=== PATIENT | male | born 1995 | race Caucasian/White ===

== ENCOUNTER 2021-10-19 03:00 | Inpatient (IN) ==
[2021-10-19 03:41] LABS: Basophils # (auto) 0.07 K/uL (0-0.2); Basophils % (auto) 0.8 %; Eosinophils # (auto) 0.12 K/uL (0-0.5); Eosinophils % (auto) 1.3 %; Hematocrit (blood only) 38.8 % (42-52); Hemoglobin 13.9 g/dL (14.0-18.0); Immature Granulocytes # (auto) 0.02 K/uL (0.00-0.02); Immature Granulocytes % (auto) 0.2 %; Lymphocytes # (auto) 1.83 K/uL (1.2-3.4); Lymphocytes % (auto) 20.6 %; Mean Corpuscular Hgb Conc 35.8 g/dL (32-36); Mean Corpuscular Volume 83.8 fL (80-100); Mean Platelet Volume 10.2 fL (7.4-10.4); Monocytes # (auto) 1.16 K/uL (0.11-0.59); Neutrophils # (auto) 5.69 K/uL (1.4-6.5); Neutrophils % (auto) 64.1 %; Platelet Count 207 K/uL (130-400); RDW Coefficient of Variation 12.2 % (11.5-14.5); RDW Standard Deviation 37.2 fL (36.4-46.3); Red Blood Count 4.63 M/uL (4.7-6.1); White Blood Count 8.89 K/uL (4.8-10.8)
[2021-10-19 03:59] LABS: Est GFR (African American) 140.7 ml/min; Potassium 3.5 mmol/L (3.5-5.1)
[2021-10-19 04:00] LABS: Albumin Globulin Ratio 1.5 (0.9-2); Albumin Level 4.5 gm/dl (3.4-5.0); BUN Creatinine Ratio 13.3 (10-20); Bilirubin,Total 0.4 mg/dl (0.2-1.0); Calcium 9.2 mg/dl (8.5-10.1); Creatinine Clr Calc Pharmacy 137.7 ml/min; Est GFR (Non-African American) 121.4 ml/min; Total Protein 7.5 gm/dl (6.0-8.3)
--- NOTE | 2021-10-19 04:07 | Emergency Department Note ---
Impression & Plan Suicidal ideations Hand Off ED Provider Note HPI: The patient is a 26-year-old transgender male to female patient who presents the emergency department with a chief complaint of suicidal thoughts. Patient had a walk-in earlier tonight with crisis, stated that she was having thoughts of wanting to harm herself, states that she actually did attempt to harm herself by cutting her left forearm earlier this evening with a dull knife. She has some superficial abrasions to the left forearm. Patient states that she has been having financial trouble, had a recent break-up with her partner which has been making her feel more anxious and stressed and depressed. On arrival here to the ED the patient is hemodynamically stable, she is alert and oriented and cooperative, she is otherwise in no acute distress on my initial evaluation. ROS: -Psychiatric: Suicidal thoughts, depression *10 point review systems was conducted and is otherwise negative unless stated above *Outpatient medications and allergy history reviewed PE: General: Alert, NAD HEENT: Normocephalic, atraumatic Eyes: Extraocular eye movement is intact, no scleral erythema Pulmonary: Clear to auscultation bilaterally, no wheezing Cardio: Regular rate and rhythm GI: Abdomen is soft, nontender : No suprapubic tenderness MSK: No evidence of trauma or malformation of the extremities, no edema Skin: No evidence of rash, superficial abrasions to left forearm without any evidence of active bleeding Neuro: Alert, no focal deficits Psychiatric: Cooperative Medical Decision Making: Patient presented to the emergency department with anxiety and depression, states that she has been having suicidal thoughts recently, does have superficial abrasions to the left forearm consistent with suicide attempt. Patient is currently under 201 but 302 was petitioned if needed. She is medically cleared for psychiatric/case management assessment. Patient was assessed and determined appropriate for 201 admission. She is currently under a bed search, patient was signed out to my colleague at change of shift at 0630, Dr. Neumann, for further care and final disposition with bed search ongoing. Diagnosis: 1. Suicide attempt 2. Anxiety/depression Disposition: Bed search Sukhi Gonzales DO Emergency Medicine Past Med/Surg History Social History Smoking Status: Never smoker Preferred Language: Korean Feels Safe at Home: No Allergies Allergies Allergy/AdvReac Type Severity Reaction Status Date / Time Sulfa (Sulfonamide Allergy Rash Verified 10/19/21 03:09 Antibiotics) Home Meds Home Medications Medication Instructions Recorded Confirmed estradiol 2 mg tablet 4 mg PO BID 10/19/21 10/19/21 progesterone micronized 100 mg 100 mg PO DAILY 10/19/21 10/19/21 capsule spironolactone 100 mg tablet 100 mg PO BID 10/19/21 10/19/21 Results & Data (ED) Vital Signs Vital Signs - 24 hr 10/19/21 03:03 Temperature 37.0 C Temperature Source Oral Pulse Rate 74 Respiratory Rate 20 Respiratory Effort / Characteristics Non-Labored Respiratory Depth Normal Respiratory Pattern Regular Blood Pressure 154/91 H Blood Pressure Mean 112 Blood Pressure Position Sitting Pulse Oximetry 97 Oxygen Delivery Method Room Air Sepsis Recent Fever Within 48 Hours No Sepsis New/Unexplained Change in Mental Status N/A Sepsis Action Taken by Nursing No Action Required Laboratory Data Result diagrams: 10/19/21 03:26 10/19/21 03:26 Lab Results 10/19/21 10/19/21 10/19/21 Range/Units 03:23 03:23 03:26 WBC 8.89 (4.8-10.8) K/uL RBC 4.63 L (4.7-6.1) M/uL Hgb 13.9 L (14.0-18.0) g/dL Hct 38.8 L (42-52) % MCV 83.8 (80-100) fL MCH 30.0 (25-34) pg MCHC 35.8 (32-36) g/dL RDW Std Deviation 37.2 (36.4-46.3) fL RDW Coeff of [place] 12.2 (11.5-14.5) % Plt Count 207 (130-400) K/uL MPV 10.2 (7.4-10.4) fL Immature Gran % (Auto) 0.2 % Neut % (Auto) 64.1 % Lymph % (Auto) 20.6 % [place] % (Auto) 13.0 % Eos % (Auto) 1.3 % Baso % (Auto) 0.8 % Neut # (Auto) 5.69 (1.4-6.5) K/uL Lymph # (Auto) 1.83 (1.2-3.4) K/uL [place] # (Auto) 1.16 H (0.11-0.59) K/uL Eos # (Auto) 0.12 (0-0.5) K/uL Baso # (Auto) 0.07 (0-0.2) K/uL Immature Gran # (Auto) 0.02 (0.00-0.02) K/uL Sodium (136-145) mmol/L Potassium (3.5-5.1) mmol/L Chloride (98-107) mmol/L Carbon Dioxide (21-32) mmol/L Anion Gap (3-11) BUN (6-23) mg/dl Creatinine (0.6-1.4) mg/dl Est Cr Clr Drug Dosing ml/min Est GFR ( Amer) ml/min Est GFR (Non-Af Amer) ml/min BUN/Creatinine Ratio (10-20) Glucose (70-99(Fasting)) mg/dl Calcium (8.5-10.1) mg/dl Total Bilirubin (0.2-1.0) mg/dl AST (13-39) U/L ALT (7-52) U/L Alkaline Phosphatase (34-104) U/L Total Protein (6.0-8.3) gm/dl Albumin (3.4-5.0) gm/dl Globulin (2.5-4.0) gm/dl Albumin/Globulin Ratio (0.9-2) TSH (0.300-4.500) uIu/ml Urine Color Yellow Urine Appearance Clear (Clear) Urine pH 5.0 (4.5-7.5) Ur Specific [place] 1.019 (1.000-1.030) Urine Protein Negative (Negative) Urine Glucose (UA) Negative (Negative) Urine Ketones 1+ H (Negative) Urine Blood Negative (Negative) Urine Nitrite Negative (Negative) Urine Bilirubin Negative (Negative) Urine Urobilinogen Negative (Negative) Ur Leukocyte Esterase Negative (Negative) Salicylates (3.0-30) mg/dl Urine Opiates Screen Neg (Neg) Ur Methadone, Qual Neg (Neg) Acetaminophen (10-30) ug/ml Urine Barbiturates Neg (Neg) Ur Phencyclidine (PCP) Neg (Neg) U Amphetamin/Meth Scrn Neg (Neg) MDMA (Ecstasy) Screen Neg (Neg) U Benzodiazepines Scrn Neg (Neg) Ur Cocaine Metabolite Neg (Neg) U Marijuana (THC) Screen Pos H (Neg) Ethyl Alcohol mg/dL (<10.0) mg/dl 04/28/22 04/28/22 04/28/22 Range/Units 03:26 03:26 03:26 WBC (4.8-10.8) K/uL RBC (4.7-6.1) M/uL Hgb (14.0-18.0) g/dL Hct (42-52) % MCV (80-100) fL MCH (25-34) pg MCHC (32-36) g/dL RDW Std Deviation (36.4-46.3) fL RDW Coeff of [place] (11.5-14.5) % Plt Count (130-400) K/uL MPV (7.4-10.4) fL Immature Gran % (Auto) % Neut % (Auto) % Lymph % (Auto) % [place] % (Auto) % Eos % (Auto) % Baso % (Auto) % Neut # (Auto) (1.4-6.5) K/uL Lymph # (Auto) (1.2-3.4) K/uL [place] # (Auto) (0.11-0.59) K/uL Eos # (Auto) (0-0.5) K/uL Baso # (Auto) (0-0.2) K/uL Immature Gran # (Auto) (0.00-0.02) K/uL Sodium 137 (136-145) mmol/L Potassium 3.5 (3.5-5.1) mmol/L Chloride 103 (98-107) mmol/L Carbon Dioxide 26 (21-32) mmol/L Anion Gap 8 (3-11) BUN 11 (6-23) mg/dl Creatinine 0.83 (0.6-1.4) mg/dl Est Cr Clr Drug Dosing 137.7 ml/min Est GFR ( Amer) 140.7 ml/min Est GFR (Non-Af Amer) 121.4 ml/min BUN/Creatinine Ratio 13.3 (10-20) Glucose 95 (70-99(Fasting)) mg/dl Calcium 9.2 (8.5-10.1) mg/dl Total Bilirubin 0.4 (0.2-1.0) mg/dl AST 17 (13-39) U/L ALT 10 (7-52) U/L Alkaline Phosphatase 52 (34-104) U/L Total Protein 7.5 (6.0-8.3) gm/dl Albumin 4.5 (3.4-5.0) gm/dl Globulin 3.0 (2.5-4.0) gm/dl Albumin/Globulin Ratio 1.5 (0.9-2) TSH 3.044 (0.300-4.500) uIu/ml Urine Color Urine Appearance (Clear) Urine pH (4.5-7.5) Ur Specific [place] (1.000-1.030) Urine Protein (Negative) Urine Glucose (UA) (Negative) Urine Ketones (Negative) Urine Blood (Negative) Urine Nitrite (Negative) Urine Bilirubin (Negative) Urine Urobilinogen (Negative) Ur Leukocyte Esterase (Negative) Salicylates < 3.0 L (3.0-30) mg/dl Urine Opiates Screen (Neg) Ur Methadone, Qual (Neg) Acetaminophen < 3 L (10-30) ug/ml Urine Barbiturates (Neg) Ur Phencyclidine (PCP) (Neg) U Amphetamin/Meth Scrn (Neg) MDMA (Ecstasy) Screen (Neg) U Benzodiazepines Scrn (Neg) Ur Cocaine Metabolite (Neg) U Marijuana (THC) Screen (Neg) Ethyl Alcohol mg/dL (<10.0) mg/dl 10/19/21 Range/Units 03:26 WBC (4.8-10.8) K/uL RBC (4.7-6.1) M/uL Hgb (14.0-18.0) g/dL Hct (42-52) % MCV (80-100) fL MCH (25-34) pg MCHC (32-36) g/dL RDW Std Deviation (36.4-46.3) fL RDW Coeff of [place] (11.5-14.5) % Plt Count (130-400) K/uL MPV (7.4-10.4) fL Immature Gran % (Auto) % Neut % (Auto) % Lymph % (Auto) % [place] % (Auto) % Eos % (Auto) % Baso % (Auto) % Neut # (Auto) (1.4-6.5) K/uL Lymph # (Auto) (1.2-3.4) K/uL [place] # (Auto) (0.11-0.59) K/uL Eos # (Auto) (0-0.5) K/uL Baso # (Auto) (0-0.2) K/uL Immature Gran # (Auto) (0.00-0.02) K/uL Sodium (136-145) mmol/L Potassium (3.5-5.1) mmol/L Chloride (98-107) mmol/L Carbon Dioxide (21-32) mmol/L Anion Gap (3-11) BUN (6-23) mg/dl Creatinine (0.6-1.4) mg/dl Est Cr Clr Drug Dosing ml/min Est GFR ( Amer) ml/min Est GFR (Non-Af Amer) ml/min BUN/Creatinine Ratio (10-20) Glucose (70-99(Fasting)) mg/dl Calcium (8.5-10.1) mg/dl Total Bilirubin (0.2-1.0) mg/dl AST (13-39) U/L ALT (7-52) U/L Alkaline Phosphatase (34-104) U/L Total Protein (6.0-8.3) gm/dl Albumin (3.4-5.0) gm/dl Globulin (2.5-4.0) gm/dl Albumin/Globulin Ratio (0.9-2) TSH (0.300-4.500) uIu/ml Urine Color Urine Appearance (Clear) Urine pH (4.5-7.5) Ur Specific [place] (1.000-1.030) Urine Protein (Negative) Urine Glucose (UA) (Negative) Urine Ketones (Negative) Urine Blood (Negative) Urine Nitrite (Negative) Urine Bilirubin (Negative) Urine Urobilinogen (Negative) Ur Leukocyte Esterase (Negative) Salicylates (3.0-30) mg/dl Urine Opiates Screen (Neg) Ur Methadone, Qual (Neg) Acetaminophen (10-30) ug/ml Urine Barbiturates (Neg) Ur Phencyclidine (PCP) (Neg) U Amphetamin/Meth Scrn (Neg) MDMA (Ecstasy) Screen (Neg) U Benzodiazepines Scrn (Neg) Ur Cocaine Metabolite (Neg) U Marijuana (THC) Screen (Neg) Ethyl Alcohol mg/dL < 10.0 (<10.0) mg/dl Discharge Plan Visit Data Chief Complaint: Mental Health Evaluation Stated Complaint: DEPRESSION ED Provider: Sukhi Gonzales Discharge Problem: Suicidal ideations Forms Stand Alone Forms: [facility], Suicide Prevention Resources Prescriptions Prescriptions: No Action spironolactone 100 mg tablet 100 mg PO BID RF: 0 estradiol 2 mg tablet 4 mg PO BID RF: 0 progesterone micronized 100 mg capsule 100 mg PO DAILY RF: 0 Referrals Referrals: PCP,NO [Physician] -
[2021-10-19 04:12] LABS: Acetaminophen < 3 ug/ml (10-30); Salicylate < 3.0 mg/dl (3.0-30)
[2021-10-19 04:22] LABS: Appearance Urine Clear (Clear); Bilirubin Urine Negative (Negative); Blood Urine Negative (Negative); Color Urine Yellow; Glucose Urine UA Negative (Negative); Ketones Urine 1+ (Negative); Leukocyte Esterase Urine Negative (Negative); Nitrite Urine Negative (Negative); Protein Urine Negative (Negative); Specific Gravity Urine 1.019 (1.000-1.030); Urobilinogen Urine Negative (Negative)
[2021-10-19 04:50] LABS: Amphetamines+Metham, Urine Neg (Neg); Barbiturates, Urine Neg (Neg); Benzodiazepine, Urine Neg (Neg); Cocaine, Urine Neg (Neg); MDMA (Ecstacy), Urine Neg (Neg); Methadone, Urine Neg (Neg); Opiate, Urine Neg (Neg); Phencyclidine, Urine Neg (Neg)
--- NOTE | 2021-10-19 07:53 | Emergency Department Note ---
ED Visit Note Date and Time: at 7:30 AM Interval History: Sign out received from Dr. Otero who reviewed details of the encounter. Patient was pending mental health placement. Summary: Patient was re-evaluated at 7:52 AM and vital signs reviewed. Patient is transgender male to female transition. Suicidal with plan. Attempted cutting self with knife with minimal injury. Stress factors include recent break-up with significant other. Currently 201 with a 302 backup. Bed search underway. Disposition: Patient initially evaluated by Dr. Otero on 10/19/2021 at 4AM. Total Time: Pending .
--- NOTE | 2021-10-19 14:01 | History & Physical Report ---
Date of Service October 19, 2021 History of Present Illness Chief Complaint: suicidal ideation. Primary Care Provider: Carmen Abreu MD Azucena is a 26-year-old transgender male to female patient (pronouns she/her/hers) who presents the emergency department with a chief complaint of suicidal thoughts. Patient had a walk-in earlier tonight with crisis, stated that she was having thoughts of wanting to harm herself, states that she actually did attempt to harm herself by cutting her left forearm earlier this evening with a dull knife. She has some superficial abrasions to the left forearm. Patient states that she has been having financial trouble, family trouble, and last night she ended he relationship with her partner which has been making her feel more anxious and depressed. During my visit this afternoon, Azucena is calm, polite, and conversational, although eye contact is minimal. 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 She also ended her relationship last night, and although it was her decision, she still feels pain over this and is feeling lonely. Additionally, she has lost the support of her family several years ago after coming out as transgender. She has nieces and nephews that she hasn't seen for several years, noting the last time she had seen them was the end of September 3 years ago this month, with this anniversary coming up she has bee thinking about them more and it saddens her. All of this lead her to feeling as though she did not want to be here anymore last night. She used a kitchen knife to cut her wrists, then called crisis center, who brought her to the ED for evaluation. Today, she is feeling much better, only mildly anxious about how long she will be stuck here. She has not cut herself for 2 years prior to last night's event. She is upset with herself for digressing, but says 99% of the time she feels fine and does not wish to harm herself, last night was a brief moment of weakness. Feels depressed at baseline and has fleeting thoughts of harming herself, but does not act on them, and states her coping mechanisms includes listening to her favorite bands and focusing on healing. On a scale of 0-10, 0 meaning she would absolutely not act on a thought to harm herself, and 10 being she would immediately act on the thought or urge, she rates herself a 2. She states she has thought of a plan to kill herself previously, although she does not have access to it. She would buy sodium nitrate online and take it as she heard you may get a headache from this but otherwise drift off to sleep and don't wake up. She denies homicidal thoughts, auditory/visual/tactile hallucinations. She is COVID + today, no previous positive tests as outpatient this week. Reports she may have had chills Saturday night, otherwise asymptomatic. Vacci nated, but without her booster. Allergies Allergy/AdvReac Type Severity Reaction Status Date / Time Sulfa (Sulfonamide Allergy Rash Verified 10/19/21 03:09 Antibiotics) Home Medications Medication Instructions Recorded Confirmed Type estradiol 2 mg tablet 4 mg PO BID 10/19/21 10/19/21 History progesterone micronized 100 mg 100 mg PO DAILY 10/19/21 10/19/21 History capsule spironolactone 100 mg tablet 100 mg PO BID 10/19/21 10/19/21 History Past Med/Surg History Social History Smoking Status: Never smoker Preferred Language: Vietnamese Feels Safe at Home: No Review of Systems Review of Systems: Constitutional: Chills Saturday, otherwise no current fever/chills, weakness, fatigue, myalgias, anorexia, night sweats Eyes: No diplopia, no worsening or blurred vision ENT: normal hearing, no trouble swallowing Respiratory: No cough, sputum, dyspnea at rest or on exertion Cardiovascular: No chest pain, tightness or palpitations Abdomen: No pain, nausea, vomiting, diarrhea or constipation : Denies dysuria, hematuria, increased urgency/frequency, urinary retention Musculoskeletal: No joint pain, calf pain, swelling Neurologic: No weakness, numbness/tingling, or balance problems Psychiatric: anxiety and depression Skin: No rash or itch Physical Exam Physical Exam: General: awake, alert, no apparent distress Head: Normocephalic, atraumatic ENT: PERRL, EOMI, no pharyngeal exudate, mucous membranes moist Chest: Clear to auscultation, on room air, no adventitious breath sounds Cardiac: Regular rate and rhythm, no murmur, no JVD, normal peripheral pulses, good capillary refill Abdominal: NABS x 4 quadrants, soft, nontender to palpation, no rebound, guarding or tenderness Extremities: Normal inspection, no peripheral edema or erythema, calfs nontender to palpation Psych: Normal mood and affect Neuro: AAO x 3, strength intact bilaterally and rated 5/5, no motor deficits, speech is clear, no peripheral sensory deficits Skin: no rash or erythema Results & Data Results & Data ([facility]) Vital Signs (Past 12 Hours) Vital Signs Temp Pulse Pulse Resp BP BP Pulse Ox 10/19/21 07:38 69 16 140/88 97 10/19/21 03:03 37.0 C 74 20 154/91 H 97 Laboratory Results Abnormal lab results 10/19/21 10/19/21 10/19/21 Range/Units 03:23 03:23 03:26 RBC 4.63 L (4.7-6.1) M/uL Hgb 13.9 L (14.0-18.0) g/dL Hct 38.8 L (42-52) % [place] # (Auto) 1.16 H (0.11-0.59) K/uL Urine Ketones 1+ H (Negative) Salicylates (3.0-30) mg/dl Acetaminophen (10-30) ug/ml U Marijuana (THC) Screen Pos H (Neg) SARS-CoV-2, RNA, NAAT (NEGATIVE) 10/19/21 10/19/21 Range/Units 03:26 09:17 RBC (4.7-6.1) M/uL Hgb (14.0-18.0) g/dL Hct (42-52) % [place] # (Auto) (0.11-0.59) K/uL Urine Ketones (Negative) Salicylates < 3.0 L (3.0-30) mg/dl Acetaminophen < 3 L (10-30) ug/ml U Marijuana (THC) Screen (Neg) SARS-CoV-2, RNA, NAAT POSITIVE A* (NEGATIVE) Supervising Physician Co-Signing Physician Notes Documentation reviewed, discussed with DANYEL. Agree with her note above. This is a 26-year-old male to female transgender woman who presented after suicidal ideation. She is apparently much improved from this but did test positive for COVID in the emergency room. She has been asymptomatic from any COVID or other infectious symptoms. Plan is to keep her on medical service until psychiatry can evaluate the patient and determine need for inpatient psychiatric hospitalization versus discharge with plan. PG Care Time/CCT Total # of Minutes Spent Total Time Spent with Patient: Total time spent is greater than 50% in coordination of care (as documented) at patient's floor/unit and/or counseling patient: Coding Level of Care Code INT OBSERVATION CARE 70M LVL 3
[2021-10-19] MEDS ORDERED: ACETAMINOPHEN 325 MG TAB PO PRN (20:02)
[2021-10-19] MEDS ORDERED: ONDANSETRON INJ 2 MG/ML 2 ML VIAL IV PRN (20:02)
[2021-10-19] MEDS: SPIRONOLACTONE 100 MG TAB PO SCH (22:01)
[2021-10-19] MEDS: estradioL 1 MG TAB PO SCH (22:01)
[2021-10-20] MEDS ORDERED: BENZONATATE 100 MG CAPSULE PO PRN (00:46)
[2021-10-20] MEDS: SPIRONOLACTONE 100 MG TAB PO SCH ×2 (11:15→21:16)
[2021-10-20] MEDS: estradioL 1 MG TAB PO SCH ×2 (11:15→21:16)
[2021-10-20] MEDS: PROGESTERONE PO SCH (12:55)
--- NOTE | 2021-10-20 13:04 | Hospitalist Progress Note ---
Date of Service October 20, 2021 Assessment & Plan (1) Suicidal ideations: Plan: - Currently 1:1 - Psych has been consulted (2) COVID-19: Plan: - Asymptomatic - In isolation - Fully vaccinated - Meets no treatment criteria (3) Marijuana use: Plan: - Admits to use (4) Transgender woman on hormone therapy: Plan: - Continue prescribed hormone therapy (Estradiol and Aldactone) Plan: As above. Await recommendations from psych to determine disposition. Plan d/w Dr. Lim Admission and Anticipated Discharge Date Admission Date: October 19, 2021 Subjective Patient seen on daily rounds this morning. Reports no complaints of dyspnea, cough, fever, chills, chest pain, wheezing, or headache. Incidentally tested positive for COVID, has been fully vaccinated w/ Pfizer in October 2020 w/o booster. Reports feels improved from previous suicidal ideation, no longer wants to hurt herself. Review of Systems Review of Systems: All systems reviewed and are unremarkable except as noted in HPI and below. Denies fever, chills, fatigue, headache, nasal congestion, sore throat, cough, chest pain, shortness of breath, palpitations, orthopnea, PND, abdominal pain, n/v/d, constipation, dysuria, hematuria, frequency, back pain, joint pain or swelling, easy bruising or bleeding, skin lesions or rashes. Physical Exam Physical Exam: GENERAL: 26 yo wd/wn WM (transgender male to female). NAD. LUNGS: Clear to auscultation bilaterally. No accessory muscle use. No W/R/R. CARDIOVASCULAR: Regular rate and rhythm. No M/G/R. No JVD. ABDOMEN: Soft, non-tender and non-distended. BS normal x 4 quad. EXTREMITIES: No edema. Non-tender. Peripheral pulses +2/4. NEUROLOGIC: A&O x3. PSYCHIATRIC: Cooperative. Appropriate mood and affect. SKIN: Warm, dry, intact. No rashes or lesions. Results & Data Results & Data ([facility]) Vital Signs (Past 12 Hours) Vital Signs Temp Pulse Resp BP Pulse Ox 10/20/21 08:40 36.7 C 100 H 18 147/68 H 96 PG Care Time/CCT Total # of Minutes Spent Total Time Spent with Patient: Total time spent is greater than 50% in coordination of care (as documented) at patient's floor/unit and/or counseling patient: Coding Level of Care Code 12582 Subseq Hosp Care Lvl 2 Diagnoses Suicidal ideations R45.851 COVID-19 U07.1 Marijuana use F12.90 Transgender woman on hormone therapy F64.0; Z79.899
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
[2021-10-21 08:47] LABS: Marijuana Quant, GCMS Urine 179 ng/mL (<5)
[2021-10-21] MEDS: estradioL 1 MG TAB PO SCH ×2 (08:54→20:29)
[2021-10-21] MEDS: PROGESTERONE PO SCH (08:54)
[2021-10-21] MEDS: SPIRONOLACTONE 100 MG TAB PO SCH ×2 (08:54→20:29)
--- NOTE | 2021-10-21 10:37 | Hospitalist Progress Note ---
Date of Service October 21, 2021 Assessment & Plan (1) Suicidal ideations: Plan: - Suicidal ideation with plan and h/o MDD - Currently 1:1 - Psych has been consulted, recommending inpatient behavioral health admission (2) COVID-19: Plan: - Asymptomatic - In isolation - Fully vaccinated - Meets no treatment criteria - Repeat COVID this AM pending, will need 2 negatives 24 hrs apart to be transferred to behavioral health unit (3) Marijuana use: Plan: - Admits to use (4) Transgender woman on hormone therapy: Plan: - Continue prescribed hormone therapy (Estradiol and Aldactone) Plan: Await pending COVID, if negative, will need a second one tomorrow morning and if also negative can be transferred to behavioral health. Plan d/w Dr. Lim Admission and Anticipated Discharge Date Admission Date: October 19, 2021 Subjective Patient seen on daily rounds this morning. Reports no complaints of dyspnea, cough, fever, chills, chest pain, wheezing, or headache. Review of Systems Review of Systems: All systems reviewed and are unremarkable except as noted in HPI and below. Denies fever, chills, fatigue, headache, nasal congestion, sore throat, cough, chest pain, shortness of breath, palpitations, orthopnea, PND, abdominal pain, n/v/d, constipation, dysuria, hematuria, frequency, back pain, joint pain or swelling, easy bruising or bleeding, skin lesions or rashes. Physical Exam Physical Exam: GENERAL: 26 yo wd/wn WM (transgender male to female). NAD. LUNGS: Clear to auscultation bilaterally. No accessory muscle use. No W/R/R. CARDIOVASCULAR: Regular rate and rhythm. No M/G/R. No JVD. ABDOMEN: Soft, non-tender and non-distended. BS normal x 4 quad. EXTREMITIES: No edema. Non-tender. Peripheral pulses +2/4. NEUROLOGIC: A&O x3. PSYCHIATRIC: Cooperative. Appropriate mood and affect. SKIN: Warm, dry, intact. No rashes or lesions. Results & Data Results & Data ([facility]) Vital Signs (Past 12 Hours) Vital Signs Temp Pulse Resp BP Pulse Ox 10/21/21 08:44 36.6 C 63 16 112/74 97 10/20/21 23:16 37 C 73 15 126/81 98 Laboratory Results Repeat COVID pending PG Care Time/CCT Total # of Minutes Spent Total Time Spent with Patient: Total time spent is greater than 50% in coordination of care (as documented) at patient's floor/unit and/or counseling patient: Coding Level of Care Code 95798 Subseq Hosp Care Lvl 2 Diagnoses Suicidal ideations R45.851 COVID-19 U07.1 Marijuana use F12.90 Transgender woman on hormone therapy F64.0; Z79.899
--- NOTE | 2021-10-21 16:27 | Psychiatric Progress Note ---
Date of Service October 21, 2021 Impression / Recommendations Impression 26 yo transgender woman with history of depression and anxiety who presented with SI and self-harm in the context of relationship stressors. She is Covid + and reports vaping more medical MJ lately which could be contributing factors. The patient is deemed unstable and requires ongoing psychiatric care for diagnostic clarification, safety and stabilization, medication management and development of further coping skills. Acute risk is moderate given denial of SI and improvement in mood but still requires 1:1 as she is on medical floor due to COVID status. 10/21/21: Improvement in mood, no SI today. Needs to complete safety plan. Not interested in medication, willing to consider therapy, open to getting resources see can review and consider. (1) Major depression: (2) COVID-19: -continue 1-on-1 with suicide precautions -if patient remains asymptomatic from a COVID standpoint could have repeat testing at the discretion of hospitalist. 2 negatives 24 hrs apart (PCR) could be transferred for mental health before the 10 day isolation. -will work on safety plan Risk Factors Assessment Do You Have Access To A Gun?: No Protective Factors Assessment Employed: Yes ([employer]) Interval History Identifying Information Azucena, is a transgender woman with a history of depression and anxiety who was admitted from the ED for SI with plan. She is being housed on the medical floor in respiratory isolation given COVID+ status. Chief Complaint "I think I self-sabotage". Review of Systems Notes stable sleep and appetite Telehealth Telehealth Options: Telephone only For the duration of the visit, provider was performing the assessment from: A different facility than the patient After establishing a telemedicine visit, patient was: Patient was verified with two unique identifiers, Patient/authorized rep acknowledged consent and understanding and Gave permission to continue telehealth session Total Time Spent (minutes): 25 Subjective Subjective Patient was seen & assessed and interval progress reviewed with treatment team nursing and social work. Azucena was seen via telemedicine along with social work. Azucena described events prior to admission including feeling overwhelmed by girlfriend's desire to move in together and feels she responded by "self-s abotaging" and breaking off the relationship because this felt overwhelming. She feels that now that she's had time to process things she wants to continue their relationship but doesn't want to move in yet as she feels like she wants to avoid becoming "co-dependent" and wants to maintain her identity outside of the relationship. States she thinks her reaction was because she often view things as "me against the world". Reviewed current mood she notes she feels "better" today and that the "further out I am from that stressor the less I think I need medication or therapy". Reviewed how she felt therapy was helpful in the past and she may be willing to consider this again but she also feels like her mood has been stable up until the day of the breakup. Denies any history of prior attempts, not hx psychiatric hospitalizations. last episode of self-harm prior to presentation at ED was 2 years ago. She feels her presentation to the ED was "very situational" and therefore she feels medication is not needed at this time. Has no access to guns. Has PCP through [facility]. She denies SI today. Reviewed importance of safety planning which she is willing to work on this afternoon and evening. Physical Exam Psychiatric Orientation: alert and oriented x 3 Speech: normal rate/rhythm/volume of speech Mood: no depressed mood Thought Process: goal directed thought process Thought Content: reality based without delusions Suicidal Thoughts: denies suicidal thoughts Homicidal Thoughts: denies homicidal thoughts Hallucinations: no auditory hallucinations and no visual hallucinations Cognition: recent memory grossly intact, remote memory grossly intact, attention grossly intact and language grossly intact Estimated Intelligence: consistent with education level Insight: + fair insight Judgement: + fair judgement Vital Signs (Past 24 Hours) Last Vital Signs Temp 36.6 C 10/21/21 15:05 Pulse 87 10/21/21 15:05 Resp 14 10/21/21 15:05 BP 148/88 H 10/21/21 15:05 Pulse Ox 98 10/21/21 15:05 Results & Data ([facility]) Laboratory Results Laboratory Results - last 24 hr 10/19/21 10/21/21 03:23 09:50 U Marijuana THC Carboxy 179 H Drug Screen Comment SEE NOTE SARS-CoV-2 RNA ([facility]) Pending Current Inpatient Medications Current Inpatient Medications: Current Inpatient Medications Acetaminophen (Acetaminophen 325 Mg Tab) 650 mg PO Q4H PRN PRN Reason: Pain or Fever Stop: 11/18/21 20:01 Benzonatate (Benzonatate 100 Mg Capsule) 100 mg PO TID PRN PRN Reason: cough Stop: 11/19/21 08:59 Last Admin: 10/20/21 01:14 Dose: 100 mg Documented by: Estradiol (Estradiol 1 Mg Tab) 4 mg PO BID [facility] Stop: 11/18/21 20:59 Last Admin: 10/21/21 08:54 Dose: 4 mg Documented by: Progesterone~Non- Formulary Patient's Own Med 1 ea PO DAILY [facility] Stop: 11/19/21 08:59 Last Admin: 10/21/21 08:54 Dose: 1 ea Documented by: Ondansetron HCl (Ondansetron Inj 2 Mg/Ml 2 Ml Vial) 4 mg IV Q6H PRN PRN Reason: Nausea Stop: 11/18/21 20:01 Spironolactone (Spironolactone 100 Mg Tab) 100 mg PO BID [facility] Stop: 11/18/21 20:59 Last Admin: 10/21/21 08:54 Dose: 100 mg Documented by: Mental Health & Subst Abuse Tx Therapist Name of Therapist: None Spring Former Hand Name of Spring Former Hand: None Post Discharge Appointments Primary Care Physician Name Of Family Doctor: Vincent Mcrae
[2021-10-22] MEDS: estradioL 1 MG TAB PO SCH (08:50)
[2021-10-22] MEDS: SPIRONOLACTONE 100 MG TAB PO SCH (08:50)
[2021-10-22] MEDS: PROGESTERONE PO SCH (08:50)
--- NOTE | 2021-10-22 10:29 | Psychiatric Progress Note ---
Date of Service October 22, 2021 Impression / Recommendations Impression 26 yo transgender woman with history of depression and anxiety who presented with SI and self-harm in the context of relationship stressors and found to be COVID + and admitted medically. Diagnostically consistent with adjustment disorder with mixed anxiety and depressed mood which has improved significantly over the last few days with support and time to process her emotions related to her relationship. She is now denying SI, denies any urges for self-harm, feels safe and wishes to discharge home. She does not meet criteria for 302 warrant as she denies SI, denies HI, no evidence for cecile nor psychosis, able to care for her basic needs and with improvement in mood. Therefore she is now appropriate and safe for discharge. She completed a thorough safety plan and reviewed this with psych liason as well discussed with me today. Discussed recommendation for therapy; she does not desire medication nor therapy referrals at this time but was provided with resources should she choose to pursue this in the future and knows she can contact her PCP should she desire medication for mood or anxiety in the future. Acute risk of self-harm is low given denial of SI, hopefulness, improvement in mood, future-oriented, and with multiple reasons for living. 10/22/21: Completed safety plan, continues to desire discharge, stable for discharge from psychiatric standpoint. Not interested in medication, willing to consider therapy, was provided with resources. (1) Adjustment disorder with mixed anxiety and depressed mood: -Safe for discharge from psychiatric perspective -No longer needs suicide precautions, can discontinue 1 on 1 Risk Factors Assessment Do You Have Access To A Gun?: No Protective Factors Assessment Employed: Yes ([employer]) Interval History Identifying Information Azucena, is a transgender woman with a history of depression and anxiety who was admitted from the ED for SI with plan. She is being housed on the medical floor in respiratory isolation given COVID+ status. Psychiatry consulted for recommendations. Chief Complaint "I'd like to go home, I feel safe now". Review of Systems Notes Some sleep difficulty which she attributes to small mattress and room being hot (feels she'll be able to sleep well at home in her own bed), stable appetite Telehealth Telehealth Options: Telephone only For the duration of the visit, provider was performing the assessment from: The same facility as the patient After establishing a telemedicine visit, patient was: Patient was verified with two unique identifiers, Patient/authorized rep acknowledged consent and understanding and Gave permission to continue telehealth session Subjective Subjective Patient was seen & assessed and interval progress reviewed with treatment team nursing and social work. Met with Azucena via telemedicine with social work. Azucena was also seen in person by psych liason in [facility] isolation just prior to our phone call. Azucena reports ongoing desire to return home as she feels she is safe, denies any SI since and denies any urges for self-harm. She reports feeling a bit anxious about her romantic relationship in terms of not having yet decided if she wants to fully get back together with her girlfriend but is considering this. Validated this uncertainty and discussed ways to help cope with and navigate some of the uncertainty related to her relationship. She feels she has other good supports and completed her safety plan. Reviewed mobile devonte safety plan she could use in addition to have plan easily accessible if needed in the future. She was provided with resources for local therapy options and LGBTQ providers and support groups as well. For now she continues to feel she is not interested in therapy or medication at this time but will consider them if her mood worsens again in the future. Reviewed that she has no access to guns at home. She reports her mood is "good" and she is looking forward to being back in her apartment. Discussed option to return to the ED should her mood worsen in the future or should SI re-emerge which she agrees to do. She denies any other c oncerns or questions. She drove herself to the ED and feels comfortable returning to her apartment using her car. Physical Exam Psychiatric Orientation: alert and oriented x 3 Speech: normal rate/rhythm/volume of speech Mood: no depressed mood Thought Process: goal directed thought process Thought Content: reality based without delusions Suicidal Thoughts: denies suicidal thoughts Homicidal Thoughts: denies homicidal thoughts Hallucinations: no auditory hallucinations and no visual hallucinations Cognition: recent memory grossly intact, remote memory grossly intact, attention grossly intact and language grossly intact Estimated Intelligence: consistent with education level Insight: + fair insight Judgement: + fair judgement Vital Signs (Past 24 Hours) Last Vital Signs Temp 36.8 C 10/21/21 23:48 Pulse 60 10/21/21 23:48 Resp 16 10/21/21 23:48 BP 124/84 10/21/21 23:48 Pulse Ox 97 04/30/22 23:48 Results & Data ([facility]) Laboratory Results Laboratory Results - last 24 hr 10/21/21 09:50 SARS-CoV-2 RNA ([facility]) POSITIVE A* Current Inpatient Medications Current Inpatient Medications: Current Inpatient Medications Acetaminophen (Acetaminophen 325 Mg Tab) 650 mg PO Q4H PRN PRN Reason: Pain or Fever Stop: 11/18/21 20:01 Benzonatate (Benzonatate 100 Mg Capsule) 100 mg PO TID PRN PRN Reason: cough Stop: 11/19/21 08:59 Last Admin: 10/20/21 01:14 Dose: 100 mg Documented by: Estradiol (Estradiol 1 Mg Tab) 4 mg PO BID [facility] Stop: 11/18/21 20:59 Last Admin: 10/22/21 08:50 Dose: 4 mg Documented by: Progesterone~Non- Formulary Patient's Own Med 1 ea PO DAILY [facility] Stop: 11/19/21 08:59 Last Admin: 10/22/21 08:50 Dose: 1 ea Documented by: Ondansetron HCl (Ondansetron Inj 2 Mg/Ml 2 Ml Vial) 4 mg IV Q6H PRN PRN Reason: Nausea Stop: 11/18/21 20:01 Spironolactone (Spironolactone 100 Mg Tab) 100 mg PO BID [facility] Stop: 11/18/21 20:59 Last Admin: 10/22/21 08:50 Dose: 100 mg Documented by: Mental Health & Subst Abuse Tx Therapist Name of Therapist: None Flatwork Folder Name of Flatwork Folder: None Post Discharge Appointments Primary Care Physician Name Of Family Doctor: Vincent Mcrae
--- NOTE | 2021-10-22 11:25 | Discharge Summary ---
Date of Service October 22, 2021 Admission HPI Per Admitting Provider Azucena is a 26-year-old transgender male to female patient (pronouns she/her/hers) who presents the emergency department with a chief complaint of suicidal thoughts. Patient had a walk-in earlier tonight with crisis, stated that she was having thoughts of wanting to harm herself, states that she actually did attempt to harm herself by cutting her left forearm earlier this evening with a dull knife. She has some superficial abrasions to the left forearm. Patient states that she has been having financial trouble, family trouble, and last night she ended he relationship with her partner which has been making her feel more anxious and depressed. During my visit this afternoon, Azucena is calm, polite, and conversational, although eye contact is minimal. 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 She also ended her relationship last night, and although it was her decision, she still feels pain over this and is feeling lonely. Additionally, she has lost the support of her family several years ago after coming out as transgender. She has nieces and nephews that she hasn't seen for several years, noting the last time she had seen them was the end of September 3 years ago this month, with this anniversary coming up she has bee thinking about them more and it saddens her. All of this lead her to feeling as though she did not want to be here anymore last night. She used a kitchen knife to cut her wrists, then called crisis center, who brought her to the ED for evaluation. Today, she is feeling much better, only mildly anxious about how long she will be stuck here. She has not cut herself for 2 years prior to last night's event. She is upset with herself for digressing, but says 99% of the time she feels fine and does not wish to harm herself, last night was a brief moment of weakness. Feels depressed at baseline and has fleeting thoughts of harming herself, but does not act on them, and states her coping mechanisms includes listening to her favorite bands and focusing on healing. On a scale of 0-10, 0 meaning she would absolutely not act on a thought to harm herself, and 10 being she would immediately act on the thought or urge, she rates herself a 2. She states she has thought of a plan to kill herself previously, although she does not have access to it. She would buy sodium nitrate online and take it as she heard you may get a headache from this but otherwise drift off to sleep and don't wake up. She denies homicidal thoughts, auditory/visual/tactile hallucinations. She is COVID + today, no previous positive tests as outpatient this week. Reports she may have had chills Isela night, otherwise asymptomatic. Vaccinated, but without her booster. Principal Diagnosis 1. Suicidal ideation with plan 2. Incidentally COVID-19 positive, asymptomatic Discharge Exam GENERAL: 26 yo wd/wn WM (transgender female). NAD. LUNGS: Clear to auscultation bilaterally. No accessory muscle use. No W/R/R. CARDIOVASCULAR: Regular rate and rhythm. No M/G/R. No JVD. ABDOMEN: Soft, non-tender and non-distended. BS normal x 4 quad. EXTREMITIES: No edema. Non-tender. Peripheral pulses +2/4. NEUROLOGIC: A&O x3. PSYCHIATRIC: Cooperative. Appropriate mood and affect. SKIN: Warm, dry, intact. No rashes or lesions. Discharge Data Allergies Allergy/AdvReac Type Severity Reaction Status Date / Time Sulfa (Sulfonamide Allergy Rash Verified 10/19/21 03:09 Antibiotics) Consultations 10/19/21 10:16 ED Decision to Admit Stat 10/19/21 20:02 Consult Psychiatry Routine Procedures Performed None Ordered Studies None Hospital Course (1) Suicidal ideations: - Suicidal ideation with plan and h/o MDD - 1:1 ordered for suicide precautions - [facility] Has been assessed over the past 48 hours by psych and is now feeling safe and no longer suicidal * Psych feels that she can be safely discharged home with o/p follow up * Consider retrial of SSRI, needs to establish care with a therapist as well for counseling and f/u (2) COVID-19: - Asymptomatic - In isolation - Fully vaccinated - Meets no treatment criteria - Repeated COVID PCR on 10/21 which was still positive - She remains asymptomatic, would advise isolation/quarantine as recommended by CDC for a fully vaccinated person (3) Marijuana use: - Admits to use, claims has a medical card (4) Transgender woman on hormone therapy: - Continue prescribed hormone therapy (Estradiol, Progesterone, and Aldactone) At this time, pt is felt to be cleared for d/c from psychiatry. Subsequently, no longer requires medical admission and will be discharged home. Advise f/u with established PCP within 1 week or sooner if needed. Consider retrial of SSRI to help better manage anxiety/depression symptoms. Follow up with a therapist for counseling. Above plan of care has been d/w Dr. Lim who has also seen and evaluated this patient and is in agreement with the aforementioned. Total Time Total Time Spent Total Time Spent (In Minutes): >30 minutes Discharge Plan Discharge Items Patient Disposition: Home - Self-Care Reason For Visit: SUICIDAL IDEATION, COVID+ Discharge Diagnosis: Suicidal ideation with plan COVID-19 infection, asymptomatic Activity: Resume your previous activity Non-emergency contact: Primary Care Provider, Psychiatrist and Therapist Call non-emergency contact if: you have any medication questions Follow-up/Referrals: Carmen Abreu MD [Primary Care Provider] - Diet: Regular Addtl Attending Provider Instructions: You were hospitalized on medical floor due to incidentally testing positive for COVID-19 when you came to the emergency room due to feeling depressed and wanting to hurt yourself. Fortunately, you have not had any symptoms related to your COVID-19 infection and subsequently you have not required any specific treatment for it. We would recommend that you follow CDC guidelines regarding isolation recommendations for a fully vaccinated person. You were seen by psychiatry during your stay in the hospital. They feel at this time that you may be safely discharged home and can follow up with your family doctor. You could consider restarting medications to help better manage your depression and anxiety. It is also recommended that you establish care with a therapist of your choice and follow up with them for counseling. We recommend that you follow up with your family doctor within 1 week of discharge or sooner. Please call the office to schedule an appointment. If you have any questions/concerns, please contact the nonemergency number listed on your discharge paperwork. In the event that you feel you may want to harm yourself again, please go directly to the ER, call 911 or crisis. Pending Studies at Discharge: No Stand-Alone Forms: [facility], Smoking Cessation Medications and DC Order Prescriptions: Continued spironolactone 100 mg tablet 100 mg PO BID RF: 0 estradiol 2 mg tablet 4 mg PO BID RF: 0 progesterone micronized 100 mg capsule 100 mg PO DAILY RF: 0 Discharge Orders: Discharge Order (Routine); Ordered 10/22/21 Ordered By: Janet Pantoja Admission Data Admit Date/Time: 10/19/21 14:46 Attending Provider: Fabrice Lim Admit Provider: Jonny Marrufo Primary Care Provider: Carmen Abreu Other Providers: Jonny Marrufo ; Katrin Payton ; Marita Reilly ; Nat Ocampo Other Interventions: Discharge Summary Assessment (RN) Last Done: 10/22/21 13:42 Supervising Physician Co-Signing Physician Notes I personally saw and examined the patient. I verified all field points and agree with Janet Pantoja PA-C with the following exceptions and/or additions: 26-year-old transgender female admitted under medicine per protocol just because of COVID-19 diagnosis. Now cleared by psychiatry with no new medications added. Chest clear to auscultation bilaterally, heart sounds 1+2, no murmurs. No questions or concerns from patient. Appears to be asymptomatic from COVID-19. Recommend isolation for 5 days per CDC guidelines and then wearing a mask for up to 10 days - discussed this with the patient. Coding Level of Care Code D/C DAY MANAGEMENT >30 MINS Diagnoses Suicidal ideations R45.851 COVID-19 U07.1 Marijuana use F12.90 Transgender woman on hormone therapy F64.0; Z79.899
== END 2021-10-22 14:44 | disposition home or self-care (01) | DRG 880 ==
LOC: ED 03:00 → SUATTDRO 14:46 → EDINP 14:46 → 3N 20:01